=== PATIENT | female | born 1980 | race Caucasian/White ===

== ENCOUNTER → 2017-02-21 | Outpatient (CLI) | payer OTHER ==
[~2017-02-21] MED LIST: ABILIFY15 MG PO; AMITRIPTYLINE150 MG PO; ASPIRIN325 MG PO; BUSPAR 10MG10 MG PO; ELAVIL 25 MG TA25 MG PO; FUROSEMIDE40 MG PO; GLUCOPHAGE1000 MG PO; HUMALOG 75/25 V10 ML SQ; KLONOPIN TAB 00.5 MG PO; LANTUS SOL100 UNIT/1 SQ; LIORESAL TAB 1010 MG PO; LISINOPRIL40 MG PO; LOPRESSOR 25 MG25 MG PO; MIRTAZAPINE15 MG PO; NEURONTIN 300300 MG PO; NOVOLOG FL100 UNIT/1 SQ; PROTONIX40 MG PO; PROVENTIL PO; VENTOLIN/PROVE0.5 ML INH; [UNRECOGNIZED DRUG - OTHER] PO
== END ==
LOC: KOH-I 13:15
DX: M54.5 Low back pain (principal); M25.551 Pain in right hip; M25.561 Pain in right knee
CPT/HCPCS: 72110; 73502; 73564